=== PATIENT | male | born 1985 | race Caucasian/White ===

== ENCOUNTER 2019-05-13 20:31 | Emergency (ER) | payer OTHER ==
[~2019-05-13] VITALS: Ht 165.1 cm; Wt 73.5 kg
[2019-05-13 20:49] VITALS: BP 128/88; PULSE 88; RESP 18; Ht 165.1 cm; Wt 73.5 kg
[2019-05-13] MEDS ORDERED: IBUPROFEN 600 MG TAB PO ONE (22:00)
[2019-05-13] MEDS ORDERED: HYDROCODONE/APAP (5/325) TAB PO ONE (22:00)
[2019-05-13] MEDS ORDERED: NAPR-985 PO (23:28)
--- NOTE | 2019-05-15 01:43 | ERD ---
ER Documentation Chief Complaint Chief Complaint right elbow pain, states glf yesterday night HPI 33-year-old male presents emergency department complaining of right elbow pain after a fall during a basketball game yesterday. The patient fell directly on his elbow accidentally. He states he was running and tripped and fell. His pain is 8/10 in severity worse with movement and alleviated with Advil at home. He denies any head injury or loss of consciousness or other symptoms or injuries at this time. ROS All systems reviewed and are negative except as per history of present illness. Medications Home Meds Active Scripts Naproxen* (Naprosyn*) 500 Mg Tablet, 500 MG PO BID PRN for PAIN AND/OR INFLAMMATION, #30 TAB Prov:ALESIA LOPEZ PA-C 05/13/19 Allergies Allergies: Coded Allergies: No Known Drug Allergies (Verified Allergy, Unknown, 05/13/19) PMhx/Soc Medical and Surgical Hx: pt denies Medical Hx, pt denies Surgical Hx Hx Alcohol Use: No Hx Substance Use: No Hx Tobacco Use: Yes Smoking Status: Current some day smoker FmHx Family History: No diabetes Physical Exam Vitals Vital Signs Date Temp Pulse Resp B/P (MAP) Pulse Ox O2 O2 Flow FiO2 Time Delivery Rate 05/13/19 98.5 88 18 128/88 98 20:49 (101) Physical Exam Const: No acute distress Head: Atraumatic Eyes: Normal Conjunctiva ENT: Normal External Ears, Nose and Mouth. Neck: Full range of motion. No meningismus. Resp: No respiratory distress. Skin: No petechiae or rashes Back: No midline or flank tenderness Ext: Significant soft tissue swelling and tenderness palpation over the right elbow. Patient is neurovascularly intact distally. Limited range of motion of the right elbow secondary to pain. Neur: Awake and alert Psych: Normal Mood and Affect Results 24 hrs Current Medications Medications Dose Sig/Teresita Start Time Status Last (Trade) Ordered Route PRN Stop Time Admin Dose Reason Admin Ibuprofen 600 mg ONCE ONCE 05/13/19 DC 05/13/19 (Motrin) PO 22:00 05/13/19 22:17 22:01 1 tab ONCE ONCE 05/13/19 DC 05/13/19 Acetaminophen PO 22:00 05/13/19 22:17 / 22:01 Hydrocodone Bitart (Rogers (5/325)) [facility] [address] [address] Radiology Main Line: [phone] DIAGNOSTIC IMAGING REPORT Patient: CHAD BETANCOURT : 1985 Age: 33 Sex: M MR #: [id number] DOS: 05/13/19 0000 Ordering MD: ALESIA LOPEZ PA-C Location: [facility] Room/Bed: PROCEDURE: Right elbow. CLINICAL INDICATION: Pain. TECHNIQUE: 3 views including AP, lateral and oblique views of the right elbow were obtained. COMPARISON: None. FINDINGS: There are fractures of the radial head and neck. There is no dislocation. Bone mineralization is within normal limits. There is no radiopaque foreign body or abnormal calcification. IMPRESSION: Fractures of the radial head and neck. .Ankit Betts MD, MD Date Time Electronically viewed and signed by .Ankit Betts MD, MD on 05/13/2019 22:52 .T/ CC: ALESIA LOPEZ PA-C [phone] Procedures/MDM 33-year-old male presents the emergency department with signs, symptoms, x-ray findings consistent with right elbow fracture. Full report interpreted by the radiologist may be viewed above. Patient required splint for immobilization of fracture. Patient was neurovascularly intact distal to the injury. No evidence to suggest open fracture, compartment syndrome, or other emergencies.Splint Assessment: Neurovascularly intact post splint placement with good fit. Patient's extremity symptoms have stabilized while they have been evaluated in the department and are appropriate for outpatient follow up. No evidence of compartment syndrome, neurologic injury, vascular injury, open joint, open fracture, tendon laceration, or foreign body. Patient is advised he will need 24 to 48-hour follow-up with orthopedic physician. He was given res ources to do so. He was in agreement with the diagnosis, plan, need for follow- up, return precautions. Departure Diagnosis: Primary Impression: Elbow fracture, right Condition: Fair Patient Instructions: Elbow Fracture Referrals: [facility] YOU HAVE RECEIVED A MEDICAL SCREENING EXAM AND THE RESULTS INDICATE THAT YOU DO NOT HAVE A CONDITION THAT REQUIRES URGENT TREATMENT IN THE EMERGENCY DEPARTMENT. FURTHER EVALUATION AND TREATMENT OF YOUR CONDITION CAN WAIT UNTIL YOU ARE SEEN IN YOUR DOCTORS OFFICE WITHIN THE NEXT 1-2 DAYS. IT IS YOUR RESPONSIBILITY TO MAKE AN APPOINTMENT FOR FOLOW-UP CARE. IF YOU HAVE A PRIMARY DOCTOR --you should call your primary doctor and schedule an appointment IF YOU DO NOT HAVE A PRIMARY DOCTOR YOU CAN CALL OUR PHYSICIAN REFERRAL HOTLINE AT IF YOU CAN NOT AFFORD TO SEE A PHYSICIAN YOU CAN CHOSE FROM THE FOLLOWING [facility] [address] [facility] [address] [facility] [address] [facility] [address] [facility] [facility] [facility] [address] [facility] [facility]. [address] [facility]. [facility] Urgent Care 7 a.m.- 11 p.m. Every Day of the Week NO APPOINTMENT OR AUTHORIZATION NEEDED [facility] Hours: Mon-Fri 9:00 AM - 5:00 PM Additional Instructions: SPECIALIST: YOU HAVE A MEDICAL CONDITION WHICH REQUIRES YOU TO SEE A SPECIALIST WITHIN THE NEXT 1-2 DAYS. PLEASE FOLLOW UP WITH YOUR PRIMARY PHYSICIAN FOR REFFERAL.IF YOU DO NOT HAVE A PRIMARY CARE PHYSICIAN AND/OR YOU CAN NOT AFFORD TO SEE A PHYSICIAN THE FOLLOWING RESOURCES HAVE BEEN SUPPLIED TO YOU. IT IS YOUR RESPONSIBILITY TO BE SEEN BY THE SPECIALIST: ORTHOPEDICS ALESIA LOPEZ PA-C May 15, 2019 01:43
== END 2019-05-13 23:36 | disposition home or self-care (01) ==
LOC: FTE 20:31
DX: S52.122A Displaced fracture of head of left radius, initial encounter for closed fracture (principal); S52.132A Displaced fracture of neck of left radius, initial encounter for closed fracture; F17.210 Nicotine dependence, cigarettes, uncomplicated; W01.0XXA Fall on same level from slipping, tripping and stumbling without subsequent striking against object, initial encounter; Y92.310 Basketball court as the place of occurrence of the external cause
CPT/HCPCS: 29105; 73080; Z7502; Z7610

== ENCOUNTER 2019-06-04 10:45 | Emergency (ER) | payer OTHER ==
[~2019-06-04] VITALS: Ht 160 cm; Wt 75.6 kg
[~2019-06-04 10:45] MED LIST: NAPR-985 PO; OXYC-279 PO
[2019-06-04 11:08] VITALS: BP 130/62; PULSE 81; RESP 18; Ht 160 cm; Wt 75.6 kg
--- NOTE | 2019-06-04 14:00 | ERD ---
ER Documentation Chief Complaint Chief Complaint has elbow fracture, waiting to see speacialist, wrist pain w/splint HPI 33-year-old male presenting with pain to the his right wrist. Patient was diagnosed with an elbow fracture on 05 12 and was splinted on 05 13. Patient was seen by orthopedist on however since the new splint was applied he has been having pain to his wrist. His next Ortho appointment is June 17. Has not taken any medication. NKDA. Surgical history denies. Social history denies ROS All systems reviewed and are negative except as per history of present illness. Medications Home Meds Active Scripts Naproxen* (Naprosyn*) 500 Mg Tablet, 500 MG PO BID PRN for PAIN AND/OR INFLAMMATION, #30 TAB Prov:MICHEAL JOSUE PA-C 06/04/19 Oxycodone HCl/Acetaminophen (Percocet 5-325 mg Tablet) 1 Each Tablet, 1 EACH PO DAILY, #7 TAB Prov:MICHEAL JOSUE PA-C 06/04/19 Naproxen* (Naprosyn*) 500 Mg Tablet, 500 MG PO BID PRN for PAIN AND/OR INFLAMMATION, #30 TAB Prov:ALESIA LOPEZ PA-C 05/13/19 Allergies Allergies: Coded Allergies: No Known Drug Allergies (Verified Allergy, Unknown, 06/04/19) PMhx/Soc History of Surgery: Yes (nose) Anesthesia Reaction: No Hx Neurological Disorder: No Hx Respiratory Disorders: No Hx Cardiac Disorders: No Hx Psychiatric Problems: No Hx Miscellaneous Medical Probl: No Hx Alcohol Use: No Hx Substance Use: No Hx Tobacco Use: Yes Smoking Status: Current some day smoker FmHx Family History: No diabetes, No coronary disease, No other Physical Exam Vitals Vital Signs Date Temp Pulse Resp B/P (MAP) Pulse Ox O2 O2 Flow FiO2 Time Delivery Rate 06/04/19 98.2 81 18 130/62 98 11:08 (84) Physical Exam GENERAL: The patient is well-appearing, well-nourished, in no acute distress CHEST: Clear to auscultation bilaterally. There are no rales, wheezes or rhonchi. HEART: Regular rate and rhythm. No murmurs, clicks, rubs or gallops. EXTREMITIES: Equal pulses bilaterally. There is no peripheral clubbing, cyanosis or edema. No focal swelling or erythema. Full range of motion. NEUROLOGIC: Alert and oriented. Cranial nerves II through XII intact. Motor strength in all 4 extremities with 5 out of 5 strength. Sensation grossly intact. SKIN: Wheezing and mild swelling noted to the right wrist and right elbow. Procedures/MDM DIAGNOSTIC IMAGING REPORT Patient: CHAD BETANCOURT : 1985 Age: 33 Sex: M MR #: [id number] DOS: 06/04/19 1147 Ordering MD: ANI JOSUE PA-C Location: [facility] Room/Bed: PROCEDURE: XR right Wrist. CLINICAL INDICATION: Right wrist pain TECHNIQUE: 4 views of the right wrist were provided COMPARISON: No prior studies are available for comparison. FINDINGS: The osseous structures including cortical margins appear intact and no acute fracture is seen. Slight redundancy along the radial margin of the distal scaphoid pole on the PA and scaphoid views, is likely projectional without evidence of fracture lucency seen including on the oblique and lateral views. Alignment is maintained. No hypertrophic or erosive changes are seen. No radiopaque foreign body. IMPRESSION: No definite acute osseous abnormality seen, as above. Note, nondisplaced fractures may initially be inapparent and short-term followup could be considered if concern or symptoms persist . ER Course: Patient placed in long-arm splint and neuro intact pre-post splint application. MDM: 33-year-old male presenting with elbow pain and wrist pain. No wrist fracture is apparent on x-ray but I will splint and have him follow-up with orthopedist. Patient is discharged with strict ER precautions and told to follow-up with primary care. I have low suspicion for tendon or ligament injury. I have low suspicion for vascular injury. All questions answered at discharge Departure Diagnosis: Primary Impression: Elbow fracture Additional Impression: Pain in wrist Condition: Stable Patient Instructions: Fracture, Wrist [General] Additional Instructions: FOLLOW UP WITH YOUR PRIMARY CARE PHYSICIAN TOMORROW.Return to this facility if you are not improving as expected. MICHEAL JOSUE PA-C Jun 04, 2019 14:00
== END 2019-06-04 13:10 | disposition home or self-care (01) ==
LOC: FTE 10:45
DX: S42.401A Unspecified fracture of lower end of right humerus, initial encounter for closed fracture (principal); F17.210 Nicotine dependence, cigarettes, uncomplicated; S69.91XA Unspecified injury of right wrist, hand and finger(s), initial encounter; X58.XXXA Exposure to other specified factors, initial encounter; Y92.9 Unspecified place or not applicable